=== PATIENT | female | born 1990 | race Two or more races ===

== ENCOUNTER 2020-06-25 19:23 | Emergency (ER) | payer SELFPAY ==
[~2020-06-25] VITALS: Ht 167.6 cm; Wt 54.4 kg
[2020-06-25] MEDS ORDERED: HALOPERIDOL LACTATE INJ 5 MG/ML VIAL IM ONE (19:30)
[2020-06-25] MEDS ORDERED: LORAZEPAM INJ 2 MG/ML VIAL IM/IV ONE (19:30)
[2020-06-25] MEDS ORDERED: diphenhydrAMINE HCL 50 MG/ML VIAL IM ONE (19:30)
--- NOTE | 2020-06-25 19:30 | NUR ---
PT BIBA C/O BIZARRE BEHAVIOR. PER REPORT, "PT WAS FOUND JUMPING ON TOP OF CARS". PT UNABLE TO PROVIDE HISOTRY, INCOHERENT, RESPIRATIONS EVEN AND UNLABORED ON RA W/ NAD NOTED. PT AGGRESSIVE. SAFETY PRECAUTIONS IMPLEMENTED. SITTER AT BEDSIDE FOR CONSTANT MONITORING. CALL LIGHT WITHIN REACH. PT'S BELONGINGS PLACED TO LOCKER AND PT CONNECTED TO THE MONITOR AND POX
[2020-06-25] MEDS ORDERED: HALOPERIDOL LACTATE INJ 5 MG/ML VIAL ONE (19:42)
[2020-06-25] MEDS ORDERED: LORAZEPAM INJ 2 MG/ML VIAL ONE (19:42)
[2020-06-25] MEDS ORDERED: diphenhydrAMINE HCL 50 MG/ML VIAL ONE (19:42)
--- NOTE | 2020-06-25 19:48 | NUR ---
READING INSTRUCTOR AT BEDSIDE FOR BLOOD DRAW.
[2020-06-25 19:52] LABS: BASOPHILS # (AUTO) 0.1 /CMM (0.0-0.2); BASOPHILS % (AUTO) 0.5 % (0.0-2.0); EOSINOPHILS % (AUTO) 2.1 % (0.0-6.0); HEMATOCRIT 40 % (33-45); HEMOGLOBIN 13.2 g/dL (11.5-14.8); LYMPHOCYTES # (AUTO) 4.8 /CMM (0.8-4.8); MEAN CORPUSCULAR HGB CONC 33 g/dl (31.0-36.0); MEAN CORPUSCULAR VOLUME 94 fL (82-100); MONOCYTES # (AUTO) 1.6 /CMM (0.1-1.30); MONOCYTES % (AUTO) 11.6 % (2.0-12.0); NEUTROPHILS % (AUTO) 50.8 % (43.0-81.0); PLATELET COUNT (AUTO) 353 /CMM (150-450); RED BLOOD CELL COUNT(AUTO) 4.19 MIL/uL (4.0-5.2); WHITE BLOOD COUNT (AUTO) 13.8 K/uL (4.3-11.0)
[2020-06-25 20:09] LABS: ALANINE AMINOTRANSFERASE 35 U/L (12-78); ALBUMIN 4.1 g/dL (3.4-5.0); ALKALINE PHOSPHATASE 98 U/L (46-116); ASPARTATE AMINOTRANSFERASE 31 U/L (15-37); BILIRUBIN,DIRECT 0.3 mg/dL (0.0-0.2); BILIRUBIN,TOTAL 1.2 mg/dL (0.2-1.0); CALCIUM, SERUM 9.5 mg/dL (8.5-10.1); CARBON DIOXIDE 28 mmol/L (21-32); CHLORIDE 106 mmol/L (98-107); CREATININE 0.8 mg/dL (0.6-1.3); GLUCOSE 77 mg/dL (74-106); POTASSIUM 3.7 mmol/L (3.5-5.1); SODIUM SERUM 142 mmol/L (136-145); TOTAL PROTEIN, SERUM 7.2 g/dL (6.4-8.2); UREA NITROGEN, BLOOD 14 mg/dL (7-18)
[2020-06-25 20:15] LABS: SALICYLATE < 2.8 mg/dL (2.8-20.0)
[2020-06-25 20:24] LABS: ALCOHOL, BLOOD 0 mg/dL (0-0)
--- NOTE | 2020-06-25 20:40 | NUR ---
URINE COLLECTED AND SENT TO LAB
[2020-06-25 20:46] LABS: APPEARANCE,URINE Clear (CLEAR); BILIRUBIN,URINE SMALL (NEGATIVE); BLOOD, URINE Negative Ery/uL (NEGATIVE); COLOR,URINE Yellow (YELLOW); KETONES,URINE Negative (NEGATIVE); LEUKOCYTE ESTERASE ,URINE Negative (NEGATIVE); NITRITE, URINE Negative (NEGATIVE); PH,URINE 5.5 (5.0-8.0); PROTEIN,URINE 30 mg/dl (NEGATIVE); UGLUCOSE Negative (NEGATIVE); UROBILINOGEN,URINE 0.2 EU/dL (0.2)
[2020-06-25 21:13] LABS: RBC,URINE 0-2 /HPF (0-2)
[2020-06-25 21:14] LABS: BACTERIA,URINE Few /HPF (None Seen); SQUAMOUS EPITHELIAL CELL,UR Few /HPF (None Seen)
--- NOTE | 2020-06-26 03:04 | NUR ---
PT RESTING COMFORTABLY IN BED. VSS. PT STILL UNABLE TO PROVIDE NAME. PT CONNECTED TO THE MONITOR AND POX. SITTER AT BEDSIDE FOR SAFETY.
--- NOTE | 2020-06-26 05:56 | NUR ---
PT AAOX4. AMBULATORY WITH STEADY GAIT. REQUESTED TO LEAVE E.D. STATED HER BOYFRIEND WAS WAITING FOR HER IN [place]. DENIES USE OF DRUGS,VSS. DISCHARGED.
[2020-06-26 05:57] VITALS: BP 134/76
== END 2020-06-26 05:57 | disposition home or self-care (01) ==
LOC: EDBD 19:25 → ER 19:25
DX: R45.1 Restlessness and agitation (principal)
CPT/HCPCS: 36415; 80048; 80076; 80305; 80307; 80329; 81001; 84703; 85025; 96372 ×3; 99284; G0480; J1200; J1630; J2060; 81000-TC; 87086-TC